=== PATIENT | female | born 2000 | race Asian ===

== ENCOUNTER 2022-08-25 17:22 | Emergency (ER) | payer BC, SELFPAY ==
[2022-08-25 17:31] VITALS: BP 152/97; PULSE 107; RESP 20; TEMP 37.3; O2SAT 96
--- NOTE | 2022-08-25 17:35 | ED.BACK ---
HPI - Back Pain/Injury General Chief Complaint: Back Pain/Injury Stated Complaint: back pain History of Present Illness HPI Narrative: This is a 22-year-old who comes in complaining of back pain from the top of her neck to her sacral area. Patient states that has been going on for some time but more intensely since the last 3 days patient denies having any car accidents patient denies any falls denies any injuries denies lifting anything or any 1 event that would cause this pain. Patient states that it is intentional her right shoulder neck area down to her thoracic that goes around to her stomach. She also has pain in her sacral buttocks that shoots down her leg patient states she has had pain for a long time and most of her pain has been caused from being in marching band. She also states that she has bad knees Related Data Home Medications Medication Instructions Recorded Confirmed levonorgestrel 0.15 mg-ethinyl 08/25/22 estradiol 30 mcg tablets,3 mos pack(91) sertraline 25 mg tablet mg 08/25/22 Allergies Allergy/AdvReac Type Severity Reaction Status Date / Time hydrocodone AdvReac Nausea Verified 08/25/22 17:27 Review of Systems Review of Systems: back pain All systems reviewed & are unremarkable except as noted in HPI and below PMFSH Past Medical History Medical History Asthma Comments At time as signature, I have reviewed and agree with nursing past medical, social, surgical and family history. Please see nursing chart for further information. There is no relevant family history pertinent to the presenting complaint. Exam Narrative: GENERAL:Well-appearing, well-nourished, and in no acute distress. HEAD:Normocephalic EYES: PERRLA and EOMI. ENT: Nares clear, no rhinorrhea or epistaxis. Mucous membranes moist. CHEST: Wheezes present fall chest wall. No respiratory distress. HEART: Regular rate and rhythm.Normal peripheral pulses. ABDOMEN: Soft, nontender, nondistended, normal active bowel sounds. No pain with palpitation of back very tense patient able to bend although it is painful and it takes her some time unable to touch her toes EXTREMITIES: Normal range of motion. No edema. SKIN: Warm, dry, no rash. NEURO: No focal deficits. Alert and oriented x3. Course Course Level of Care: Express Care Visit Vital Signs Vital signs: Vital Signs Temperature 99.2 F 08/25/22 17:31 Pulse Rate 107 H 08/25/22 17:31 Respiratory Rate 20 08/25/22 17:31 Blood Pressure 152/97 H 08/25/22 17:31 Pulse Oximetry 96 08/25/22 17:31 Temperature 99.2 F 08/25/22 17:31 Pulse Rate 107 H 08/25/22 17:31 Respiratory Rate 20 08/25/22 17:31 Blood Pressure 152/97 H 08/25/22 17:31 Pulse Oximetry 96 08/25/22 17:31 MDM - Back Pain/Injury Differential Diagnosis Differential diagnosis: Likely lumbar radiculopathy, sciatica, strain of lumbar region, pyelonephritis, thoracic back pain and discitis Discharge Plan Discharge Clinical Impression: Strain of lumbar region, Sciatica, Cervical muscle pain Patient Disposition: Home, Self-Care Condition: Stable Instructions: Antibiotic Form, Sciatica (ED), Lumbar Radiculopathy (ED), Back Pain (ED), Back Pain in Older Children and Adolescents (ED) Additional Instructions: follow up with your pcp Prescriptions: New methylprednisolone [Medrol ([place]liv[place])] 4 mg tablets,dose pack See Rx Instructions .ROUTE .COMPLEX Qty: 21 0RF Rx Instructions: orally per package directions cyclobenzaprine 5 mg tablet 5 mg PO TID PRN (Reason: muscle spasm) Qty: 14 0RF ibuprofen 600 mg tablet 600 mg PO TID PRN (Reason: pain) Qty: 20 0RF No Action sertraline 25 mg tablet levonorgestrel-ethinyl estrad 0.15 mg-30 mcg (91) tablets,dose pack,3 month Follow-up/Referrals: Parent,CHRISTOPHER Calderon [Primary Care Provider] - Time of Disposition: 17:46
== END 2022-08-25 17:51 | disposition home or self-care (01) ==
PROVIDERS: Emergency Provider Nurse Practitioner Family; PCP Physician Assistant
DX: S39.012A Strain of muscle, fascia and tendon of lower back, initial encounter (principal); X58.XXXA Exposure to other specified factors, initial encounter; M54.30 Sciatica, unspecified side; M54.2 Cervicalgia; J45.909 Unspecified asthma, uncomplicated
CPT/HCPCS: 99213; G0463

== ENCOUNTER 2022-12-17 15:36 | Emergency (ER) | payer BC, SELFPAY ==
[2022-12-17 15:53] VITALS: BP 139/87; PULSE 109; RESP 18; TEMP 36.3; O2SAT 100
[2022-12-17] MEDS: ONDANSETRON HCL ODT 4 MG TABLET SUBLINGUAL (16:23)
--- NOTE | 2022-12-17 17:36 | ED.NAVMDI ---
HPI - Nausea/Vomiting/Diarrhea General Chief complaint: Nausea/Vomiting/Diarrhea Stated complaint: abd pain/vomiting/diarrhea Time Seen by Provider: 12/17/22 17:37 Source: patient, family, RN notes reviewed and old records reviewed Mode of arrival: ambulatory Limitations: no limitations History of Present Illness HPI Narrative: 22 YEAR OLD FEMALE ACCOMPANIED BY SIGNIFICANT OTHER WITH COMPLAINT OF UPPER EPIGASTRIC PAIN WHICH radiates to right upper abdomen which started about 0700 this morning with heartburn and has progressed to include increased abdominal pain with nausea and vomiting at least 5 times and liquid watery stools. Patient has not ate or drank since yesterday.Patient did take omeprazole this morning with no improvement in her symptoms, does have history of GERD. MD elicited complaint: nausea, vomiting, diarrhea and abdominal pain (epigastric radiating to right upper abdomen) Onset (ago): hour(s) (0700 today) Description of vomiting: food contents Description of diarrhea: watery Associated nausea: Yes Location of pain: epigastric Radiation: RUQ Pain scale (0-10): 7 Treatment prior to arrival: other (omeprazole) Related Data Home Medications Medication Instructions Recorded Confirmed levonorgestrel 0.15 mg-ethinyl 08/25/22 estradiol 30 mcg tablets,3 mos pack(91) sertraline 25 mg tablet 50 mg 08/25/22 omeprazole 20 mg capsule,delayed mg 12/17/22 release Allergies Allergy/AdvReac Type Severity Reaction Status Date / Time hydrocodone AdvReac Nausea Verified 12/17/22 15:41 Review of Systems Review of Systems: CONSTITUTIONAL: Denies fever, chills, or sweats. ENT: Denies rhinorrhea, congestion, sore throat, or otalgia. CARDIOVASCULAR: Denies chest pain, palpitations, or edema. RESPIRATORY: Denies cough or dyspnea. GASTROINTESTINAL: Reports epigastric abdominal pain radiates to right upper abdomen with nausea, vomiting, diarrhea. GENITOURINARY: Denies dysuria or hematuria. SKIN: Denies rash or itching. MUSCULOSKELETAL: Denies back pain, joint pain, or myalgia. NEUROLOGIC: Denies headache, numbness, or weakness. All systems reviewed & are unremarkable except as noted in HPI and below PMFSH Past Medical History Medical History (Updated 12/18/22 @ 15:29 by Manju Lemon NP) Asthma GERD (gastroesophageal reflux disease) Surgical History Surgical History (Updated 12/18/22 @ 15:07 by Manju Lemon NP) History of tonsillectomy [place] teeth extracted Social History Social History (Updated 12/18/22 @ 15:13 by Manju Lemon NP) Smoking status: Never smoker Alcohol intake: current Alcohol use details: social Substance use type: does not use Gender identity (if verbalized by the patient): Female Comments At time of signature, agree with nursing past medical, surgical, social and family history. There is no relevant family history pertinent to the presenting complaint Exam Narrative: GENERAL: Well-appearing, well-nourished, and in no acute distress. HEAD: Normocephalic, atraumatic. EYES: PERRLA, conjunctivae clear, and EOMI. ENT: Nares clear. Mucous membranes moist. Oropharynx without edema, erythema, or lesions. Tonsils not enlarged and without exudate. NECK: Supple. No lymphadenopathy CHEST: Speaks in full sentences. No respiratory distress. HEART: Regular rate and rhythm. ABDOMEN: Soft, flat, nondistended. No guarding, tenderness epigastric abdomen with radiation to RUQ, no rigidity. No pulsatilla masses. Bowel sounds present in all four quadrants. No organomegaly. Negative Greco?s sign. No periumbilical tenderness. No Supra public tenderness or distension. Good femoral pulses bilaterally. No hernia noted. No scars or surface trauma. SKIN: Warm, dry, no rash. NEURO:? Alert and oriented x3. PSYCH: Normal mood and affect Course Course Emergency Course: Patient is aware of diagnosis, understands and agrees to treatment plan.? Anticipatory daly
--- NOTE | 2022-12-17 17:37 | PC.NURSE ---
1730 aware of need for further evaluation in er per straightener hand. given ua spec. container to obtain urine spec. at this time.
--- NOTE | 2022-12-17 18:05 | ED.NAVMDI ---
HPI - Nausea/Vomiting/Diarrhea General Chief complaint: Nausea/Vomiting/Diarrhea Stated complaint: abd pain/vomiting/diarrhea Time Seen by Provider: 12/17/22 17:37 Source: patient, family, RN notes reviewed and old records reviewed Mode of arrival: ambulatory Limitations: no limitations History of Present Illness Treatment prior to arrival: other (OMEPRAZOLE) Related Data Home Medications Medication Instructions Recorded Confirmed levonorgestrel 0.15 mg-ethinyl 08/25/22 estradiol 30 mcg tablets,3 mos pack(91) sertraline 25 mg tablet mg 08/25/22 omeprazole 20 mg capsule,delayed mg 12/17/22 release Allergies Allergy/AdvReac Type Severity Reaction Status Date / Time hydrocodone AdvReac Nausea Verified 12/17/22 15:41 [facility] Past Medical History Medical History Asthma Course Vital Signs Vital signs: Vital Signs Temperature 36.3 C L 12/17/22 15:53 Pulse Rate 109 H 12/17/22 15:53 Respiratory Rate 18 12/17/22 15:53 Blood Pressure 139/87 12/17/22 15:53 Pulse Oximetry 100 12/17/22 15:53 Oxygen Delivery Room Air 12/17/22 15:53 Temperature 36.3 C L 12/17/22 15:53 Pulse Rate 109 H 12/17/22 15:53 Respiratory Rate 18 12/17/22 15:53 Blood Pressure 139/87 12/17/22 15:53 Pulse Oximetry 100 12/17/22 15:53 Oxygen Delivery Room Air 12/17/22 15:53 MDM - Nausea/Vomiting/Diarrhea Lab Data Labs: Urine Glucose Negative Reference Range: Negative Urine Bilirubin 1+ Reference Range: Negative Urine Ketone 4+ Reference Range: Negative Urine Specific [place] 1.020 Reference Range:1.001-1.035 Urine Blood Negative Reference Range: Negative * * Urine pH 7.0 Reference Range: 5.0-9.0 Urine Protein 1+ Reference Range: Negative Urine Urobilinogen 0.2 Reference Range: 0.2-1.0 Urine Nitrate Negative Reference Range: Negative Urine Leukocyte Trace Reference Range: Negative Urine Color Yellow Reference Range: Yellow Urine Characteristics Clear Discharge Plan Discharge Prescriptions: No Action sertraline 25 mg tablet 50 mg levonorgestrel-ethinyl estrad 0.15 mg-30 mcg (91) tablets,dose pack,3 month omeprazole 20 mg capsule,delayed release(DR/EC) Follow-up/Referrals: Parent,CHRISTOPHER Calderon [Primary Care Provider] -
== END 2022-12-17 18:19 | disposition home or self-care (01) ==
LOC: EXPCOLL 15:38
PROVIDERS: Emergency Provider Registered Nurse; PCP Physician Assistant
DX: R11.2 Nausea with vomiting, unspecified (principal); R19.7 Diarrhea, unspecified; R10.13 Epigastric pain; J45.909 Unspecified asthma, uncomplicated; K21.9 Gastro-esophageal reflux disease without esophagitis
CPT/HCPCS: 81003; 99212; A9270; G0463

== ENCOUNTER 2022-12-17 18:36 | Emergency (ER) | payer BC, SELFPAY ==
--- NOTE | ~2022-12-17 | CT_ITS ---
EXAMINATION: CT abdomen pelvis w con DATE: 12/17/2022 22:52 INDICATION: Right upper quadrant abdominal pain. Nausea and vomiting. TECHNIQUE: Computed tomography (CT) of the abdomen and pelvis was performed with 100 mL Omnipaque 350 intravenous contrast. Automated exposure control and iterative reconstruction technique were employe d. The dose-length product was 229.83 mGy-cm. COMPARISON: None. FINDINGS: The visualized portions of the lung bases are clear without pneumonia or pleural effusion. The heart size is normal. No pericardial effusion. The liver, gallbladder, spleen, pancreas, adrenal glands, and kidneys are normal. There is fluid in the vagina on the right that may be a cyst. There i s liquid stool in the colon suggesting diarrhea. There are no dilated loops of bowel. The appendix is normal. There are no pathologically enlarged lymph nodes. There is no free intraperitoneal fluid. Th e bones are unremarkable. IMPRESSION: 1. No etiology for the patient's symptoms. Reviewed, dictated and finalized at location A. NEERING DESIGNER
[2022-12-17 18:44] VITALS: BP 147/100; PULSE 119; RESP 18; TEMP 37.3; O2SAT 97
[2022-12-17 19:05] LABS: Hematocrit 47.5 % (37.0-47.0); Hemoglobin 15.9 g/dL (12.0-15.0); Mean Corpuscular HGB Conc 33.5 g/dl (32-36); Mean Corpuscular Hemoglobin 28.2 pg (26-34); Mean Corpuscular Volume 84.2 fl (80-100); Mean Platelet Volume 9.3 fl (7.4-10.4); Platelet Count Result 332 k/mm3 (150-375); Red Blood Count 5.64 M/mm3 (4.2-5.4); Red Cell Distribution Width 13.6 % (11.5-14.5); White Blood Count 16.4 K/mm3 (4.5-10.0)
[2022-12-17 19:08] LABS: Appearance Urine Clear (Clear); Bilirubin Urine 1+ (Negative); Blood Urine Trace-intact (Negative); Color Urine Yellow (Yellow); Glucose Urine UA Negative (Negative); Ketones Urine 4+ mg/dL (Negative); Leukocyte Esterase Ur Negative LEU/UL (Negative); Nitrate Urine Negative (Negative); Protein Urine 1+ mg/dL (Negative)
[2022-12-17 19:10] LABS: Bacteria Urine Trace /hpf; Mucus Urine Rare /lpf; Squamous Epithelial Cell Urine Occasional /hpf (Few); WBC Urine 0-3 /hpf
[2022-12-17 19:17] LABS: Alanine Aminotransferase 20 U/L (6-35); Albumin Level 4.7 g/dL (3.5-5.1); Alkaline Phosphatase 89 U/L (38-126); Anion Gap 13 mmol/L (8-16); Aspartate Amino Transferase 21 U/L (14-36); Bilirubin,Total 0.9 mg/dL (0.2-1.3); Blood Urea Nitrogen 12 mg/dL (7-17); Calcium 9.1 mg/dL (8.4-10.2); Carbon Dioxide 21 mmol/L (22-30); Chloride 106 mmol/L (98-107); Estimated Glomerular Filt Rate > 60; Glucose 114 mg/dL (65-110); Lipase 39 U/L (23-300); Potassium 4.2 mmol/L (3.4-5.0); Sodium 140 mmol/L (137-145)
[2022-12-17 19:22] LABS: Add Urine Microscopic? YES
[2022-12-17 19:28] LABS: Lymphocytes Absolute Manual 0.32 K/mm3 (1.1-4.5); Monocytes Absolute Manual 0.32 K/mm3 (0.1-0.90); Monocytes Percent Manual 2 % (3-9); Neutrophils Percent Manual 96 % (46-73); Platelet Estimate Adequate (Adequate); Schistocytes None Seen (NORMAL); Total Cells Counted 100
[2022-12-17 20:49] VITALS: BP 144/99; PULSE 114; RESP 20; TEMP 36.9; O2SAT 99
[2022-12-17 22:31] VITALS: BP 124/72; PULSE 76; RESP 16; O2SAT 98
[2022-12-18] MEDS: METOCLOPRAMIDE HCL INJ 10 MG/2 ML VIAL IV PUSH (00:12)
[2022-12-18] MEDS: LACTATED RINGERS 1,000 ML 999 ML IV CONT (00:12)
--- NOTE | 2022-12-18 01:18 | ED.ABDPAIN ---
HPI - Abdominal Pain General Chief Complaint: Abdominal Pain Stated Complaint: abd pain, N/V/D Time Seen by Provider: 12/17/22 23:31 History of Present Illness HPI narrative: Patient presents with nausea, vomiting, diarrhea for the last day, she gone to an urgent care and been given a dose of Zofran, which initially helped but she continues to have nausea and vomiting. Having some stomach cramps. No fever or chills. Related Data Home Medications Medication Instructions Recorded Confirmed levonorgestrel 0.15 mg-ethinyl 08/25/22 estradiol 30 mcg tablets,3 mos pack(91) sertraline 25 mg tablet 50 mg 08/25/22 omeprazole 20 mg capsule,delayed mg 12/17/22 release Allergies Allergy/AdvReac Type Severity Reaction Status Date / Time hydrocodone AdvReac Nausea Verified 12/17/22 15:41 Review of Systems Review of Systems: CONST: No fever. HEENT: No sore throat C/V: No chest pain RESP: No cough GI: Reports abdominal pain, nausea, vomiting[, diarrhea] : No dysuria. M/S: No joint pain. SKIN: No rash. NEURO: [No headache or focal numbness or weakness] PSYCH: [No depression] [facility] Past Medical History Medical History Asthma Exam Narrative: EXAMINATION OF ORGAN SYSTEMS/BODY AREAS: Constitutional: Vital signs per nursing GENERAL:[No acute distress, non-toxic appearing.] HEAD: Normal with no signs of head trauma. EYES: EOMI, conjunctiva normal ENT: Hearing grossly intact LUNGS: Nonlabored breathing. HEART: [Regular rate and rhythm] ABD: [Soft], [nontender to palpation] EXT: Normal range of motion SKIN: [No rashes or lesions.] NEURO: [Alert and oriented x 3. No gross focal sensory or strength deficits.] PSYCH: Normal affect Course Vital Signs Vital signs: Vital Signs Temperature 99.1 F 12/17/22 18:44 Pulse Rate 119 H 12/17/22 18:44 Respiratory Rate 18 12/17/22 18:44 Blood Pressure 147/100 H 12/17/22 18:44 Pulse Oximetry 97 12/17/22 18:44 Oxygen Delivery Room Air 12/17/22 18:44 Temperature 98.4 F 12/17/22 20:49 Pulse Rate 77 12/18/22 01:46 Respiratory Rate 16 12/18/22 01:46 Blood Pressure 120/66 12/18/22 01:46 Pulse Oximetry 98 12/18/22 01:46 Oxygen Delivery Room Air 12/17/22 18:44 MDM - Abdominal Pain MDM Narrative Medical decision making narrative: Electronic medical record was reviewed. Patient with history of gastritis on omeprazole presented to the ED with complaint of [abdominal pain and vomiting and diarrhea]. Vitals notable for tachycardia. Physical exam revealed soft abdomen. Based on the patient's history and physical exam, my differential includes but is not limited to [gastritis, gastroenteritis, less likely cholecystitis, pancreatitis, appendicitis without focal tenderness]. [IV access was established by nursing staff. Patient was given Reglan, IV fluids]. CBC, BMP, lipase, LFTs, bilirubin and alk phos were obtained. Labs were pertinent for elevated white count. [Decision was made to obtain a CT-abdomen to evaluate for acute abdominal process. CT-abdomen is unremarkable for acute intra-abdominal process, no signs of hydronephrosis, cholecystitis, appendicitis.] On reevaluation, the patient states that they are feeling much better. There were no witnessed episodes of vomiting in the emergency department. They are not complaining of any new abdominal pain. Repeat examination did not show any significant guarding or rebound. No new tenderness. At this time I do not feel there is any further emergent treatment to be provided. The patient was given strict return precautions, if they are to develop any worsening abdominal pain, vomiting, or blood in the vomit they are to return to the emergency department immediately. Patient verbally acknowledges understanding these directions. [The patient was informed of the above diagnostic test findings.] No further workup is necessary at this time. They will be dis
[2022-12-18 01:46] VITALS: BP 120/66; PULSE 77; RESP 16; O2SAT 98
== END 2022-12-18 01:47 | disposition home or self-care (01) ==
PROVIDERS: Emergency Medicine; Emergency Provider Emergency Medicine; PCP Physician Assistant
DX: R11.2 Nausea with vomiting, unspecified (principal); R19.7 Diarrhea, unspecified; J45.909 Unspecified asthma, uncomplicated
CPT/HCPCS: 36415; 74177; 80053; 81001; 81003; 81025; 83690; 85025; 96361; 96374; 99284; A9270; J2765; J7120; Q9967

== ENCOUNTER 2024-04-13 12:47 | Outpatient (CLI) | payer BC, SELFPAY ==
--- NOTE | ~2024-04-13 | US_ITS ---
EXAMINATION: US pelvic complete w TV DATE: 04/13/2024 13:15 INDICATION: pelvic and perineal pain TECHNIQUE: Multiple transabdominal and endovaginal sonographic images of the pelvis were obtained. COMPARISON: CT abdomen pelvis 12/17/2022 FINDINGS: Uterus: 6.7 x 2.8 x 3.7 cm. Endometrial complex measures 5 mm. Right Ovary: 2.0 x 1.5 x 2.4 cm. Vascular flow is present. No adnexal mass. Left Ovary: 2.0 x 1.5 x 2.4 cm. Vascular flow is present. No adnexal mass. There is no free fluid in the pelvis. IMPRESSION: Normal pelvic sonogram findings. Reviewed, dictated and finalized at location K.
== END 2024-04-13 12:48 ==
LOC: MICIMG 12:48
PROVIDERS: PCP Registered Nurse School; Visit Provider Registered Nurse School
DX: R10.2 Pelvic and perineal pain (principal)
CPT/HCPCS: 76830; 76856